=== PATIENT | female | born 1930 | race African-American/Black ===

== ENCOUNTER 2016-10-27 09:27 | Emergency (ER) | payer OTHER, MEDICAID ==
[~2016-10-27] VITALS: Ht 162.6 cm; Wt 86.2 kg
[2016-10-27] MEDS ORDERED: methylPREDNISolone SOD SUCC 125 MG/2 ML VL IV ONE (12:15)
[2016-10-27] MEDS ORDERED: diphenhdrAMINE HCL 50 MG/1 ML VL IV ONE (12:15)
[2016-10-27 12:58] LABS: Basophils # (auto) 0.1 uL; Basophils % (auto) 1.5 % (0.0-2.0); DEFINITIVE VIEW TRANSMISSION; Eosinophils # (auto) 1.4 uL; Eosinophils % (auto) 20.1 % (0.0-7.0); Hematocrit 40.3 % (36.0-46.0); Lymphocytes # (auto) 1.7 uL; Lymphocytes % (auto) 25.1 % (10.0-50.0); Mean Corpuscular Hemoglobin 27.4 pg (28.0-32.0); Mean Corpuscular Hgb Conc. 32.1 g/dL (32.0-36.0); Mean Corpuscular Volume 85.4 fL (80.0-100.0); Mean Platelet Volume 6.9 fL (7.4-10.4); Monocytes # (auto) 0.8 uL; Neutrophils # (auto) 2.8 uL; Neutrophils % (auto) 41.3 % (37.0-80.0); Platelet Count (auto) 284 10^3/uL (140-450); Red Cell Distribution Width 14.8 % (11.6-16.0); White Blood Cell 6.9 10^3/uL (4.4-10.8)
[2016-10-27 14:56] LABS: Albumin 3.6 g/dL (3.4-5.0); BUN/Creatinine Ratio 17.5; Bilirubin, Total 0.3 mg/dL (0.2-1.0); Calcium 9.1 mg/dL (8.5-10.1); Magnesium 2.4 mg/dL (1.6-2.6); Potassium 4.3 mmol/L (3.5-5.1); Total Protein 8.1 g/dL (6.4-8.2)
[2016-10-27 17:36] VITALS: BP 156/87
== END 2016-10-27 17:52 | disposition home or self-care (01) ==
LOC: EDUNIT# 09:27 → ER 09:32
DX: E11.9 Type 2 diabetes mellitus without complications (principal); I10 Essential (primary) hypertension; T75.89XA Other specified effects of external causes, initial encounter; X58.XXXA Exposure to other specified factors, initial encounter; Y93.89 Activity, other specified; Y99.8 Other external cause status; Y92.89 Other specified places as the place of occurrence of the external cause
CPT/HCPCS: 36415; 80053; 83735; 85025; 85049; 94761; 96374; 96375; 99284; J1200; J2930

== ENCOUNTER 2016-11-15 08:34 | Emergency (ER) | payer OTHER ==
[~2016-11-15] VITALS: Ht 160 cm; Wt 81.6 kg
[2016-11-15] MEDS ORDERED: MORPHINE SULF INJ 2 MG/ML SYRINGE 1ML IV ONE (09:30)
[2016-11-15] MEDS ORDERED: SODIUM CHLORIDE 0.9% 500 ML IVB ONE (09:30)
[2016-11-15] MEDS ORDERED: ONDANSETRON HCL 4 MG/2 ML VIAL IV ONE (09:30)
[2016-11-15 09:37] LABS: Urine Bilirubin Negative (Negative); Urine Color Yellow (Yellow); Urine Glucose Normal (Normal); Urine Ketone Negative (Negative); Urine Mucus FEW (None Seen); Urine Nitrite Negative (Negative); Urine RBC 9 /hpf (0 - 4); Urine Squamous Epithelial Cell MOD /hpf (<5); Urine Urobilinogen Normal (Negative); Urine WBC Clumps PRESENT /hpf (None Seen); Urine pH 5.5 (5.0-8.0)
[2016-11-15 09:41] LABS: Urine Blood 1+ /uL (Negative)
[2016-11-15 09:46] LABS: Basophils # (auto) 0 uL; DEFINITIVE VIEW TRANSMISSION; Eosinophils # (auto) 0.3 uL; Eosinophils % (auto) 4.9 % (0.0-7.0); Lymphocytes % (auto) 17.3 % (10.0-50.0); Mean Corpuscular Hemoglobin 27.2 pg (28.0-32.0); Mean Corpuscular Hgb Conc. 30.9 g/dL (32.0-36.0); Mean Corpuscular Volume 87.8 fL (80.0-100.0); Mean Platelet Volume 6.8 fL (7.4-10.4); Monocytes # (auto) 0.1 uL; Monocytes % (auto) 1.5 % (0.0-12.0); Neutrophils # (auto) 4.3 uL; Neutrophils % (auto) 76.3 % (37.0-80.0); Platelet Count (auto) 297 10^3/uL (140-450); White Blood Cell 5.7 10^3/uL (4.4-10.8)
[2016-11-15 10:10] LABS: Albumin 3.5 g/dL (3.4-5.0); BUN/Creatinine Ratio 20.5; Calcium 8.5 mg/dL (8.5-10.1); Magnesium 2.4 mg/dL (1.6-2.6); Potassium 3.9 mmol/L (3.5-5.1)
[2016-11-15 10:13] LABS: Bilirubin, Total 0.3 mg/dL (0.2-1.0); Total Protein 8.1 g/dL (6.4-8.2)
[2016-11-15] MEDS ORDERED: LEVOFLOXACIN 500MG 100 ML IV ONE (10:45)
[2016-11-15 11:14] VITALS: BP 115/60
== END 2016-11-15 14:32 | disposition home or self-care (01) ==
LOC: EDUNIT# 08:34 → ER 08:42 → EDUNIT# 08:42 → EDBD 08:42 → ER 14:32
DX: N39.0 Urinary tract infection, site not specified (principal); M79.1 Myalgia; E11.9 Type 2 diabetes mellitus without complications; I10 Essential (primary) hypertension
CPT/HCPCS: 36415; 74176; 80053; 81001; 83690; 83735; 85025; 94761; 96361; 96365; 96375; 99285; J1956; J2270; J2405; J7040

== ENCOUNTER 2017-07-26 09:39 | Emergency (ER) | payer OTHER, MEDICAID ==
[~2017-07-26] VITALS: Ht 157.5 cm; Wt 53.5 kg
[2017-07-26 11:06] VITALS: BP 146/96
== END 2017-07-26 11:31 | disposition home or self-care (01) ==
LOC: ER 09:39 → EDBD 09:39 → ER 11:31
DX: H10.13 Acute atopic conjunctivitis, bilateral (principal); E11.9 Type 2 diabetes mellitus without complications; I10 Essential (primary) hypertension

== ENCOUNTER 2018-07-23 11:35 | Inpatient (IN) | payer MEDICARE, MEDICAID ==
[~2018-07-23] VITALS: Ht 160 cm; Wt 91.4 kg
[2018-07-23 12:27] LABS: Basophils # (auto) 0 uL; Basophils % (auto) 0.6 % (0.0-2.0); Eosinophils # (auto) 0.6 uL; Eosinophils % (auto) 10.4 % (0.0-7.0); Hematocrit 44.9 % (36.0-46.0); Hemoglobin 14.2 g/dL (12.2-16.2); Lymphocytes # (auto) 1.8 uL; Lymphocytes % (auto) 30.9 % (10.0-50.0); Mean Corpuscular Hemoglobin 28.4 pg (28.0-32.0); Mean Corpuscular Hgb Conc. 31.7 g/dL (32.0-36.0); Mean Corpuscular Volume 89.6 fL (80.0-100.0); Monocytes # (auto) 0.6 uL; Monocytes % (auto) 10.2 % (0.0-12.0); Neutrophils # (auto) 2.7 uL; Neutrophils % (auto) 47.9 % (37.0-80.0); Platelet Count (auto) 173 10^3/uL (140-450); Red Blood Cells 5.01 10^6/uL (4.0-5.20); Red Cell Distribution Width 14.6 % (11.8-14.3); White Blood Cell 5.7 10^3/uL (4.4-10.8)
[2018-07-23 12:42] LABS: INR 0.98 (0.9-1.15); Partial Thromboplastin Time 25.8 sec (23.78-33.04); Prothrombin Time 10.5 sec (9.27-12.13)
[2018-07-23 12:44] LABS: Albumin 3.5 g/dL (3.4-5.0); Calcium 8.7 mg/dL (8.5-10.1); Magnesium 2.4 mg/dL (1.6-2.6)
[2018-07-23 12:47] LABS: BUN/Creatinine Ratio 19.2; Bilirubin, Total 0.3 mg/dL (0.2-1.0); Total Protein 8.4 g/dL (6.4-8.2)
[2018-07-23] MEDS ORDERED: ACETAMINOPHEN 500 MG TAB PO PRN (14:15)
[2018-07-23] MEDS ORDERED: HYDROcodone-ACET 5/325MG TAB PO PRN (14:15)
[2018-07-23] MEDS ORDERED: MORPHINE SULFATE 4 MG/ML SYR/VIAL IV PRN ×2 (14:15)
[2018-07-23] MEDS ORDERED: LORazepam 0.5 MG TAB PO PRN (14:15)
[2018-07-23] MEDS ORDERED: NITROGLYCERIN 0.4 MG SL TAB SL PRN (14:15)
[2018-07-23] MEDS ORDERED: TEMAZEPAM 15 MG CAP PO PRN (14:15)
[2018-07-23] MEDS ORDERED: DEXTROSE (50%) 50ML SYRG IV PRN (14:15)
[2018-07-23] MEDS ORDERED: ONDANSETRON HCL 4 MG/2 ML VIAL IV PRN (14:15)
[2018-07-23] MEDS ORDERED: ENOXAPARIN SOD 40 MG/0.4 ML SYRINGE SC ONE (14:30)
[2018-07-23] MEDS ORDERED: PANTOPRAZOLE 40 MG TAB PO ONE (14:30)
[2018-07-23] MEDS ORDERED: FUROSEMIDE 40 MG/4 ML VIAL IV ONE (14:30)
[2018-07-23] MEDS ORDERED: NITROGLYCERIN 0.2MG/HR TOPICAL PATCH TD ONE (14:30)
[2018-07-23] MEDS ORDERED: CARVEDILOL 3.125 MG TAB PO ONE (14:30)
[2018-07-23] MEDS ORDERED: ASPirin 81 mg TAB PO ONE (14:30)
[2018-07-23] MEDS ORDERED: POTASSIUM CHL 20 Meq TABLET PO ONE (14:30)
[2018-07-23] MEDS ORDERED: SODIUM CHLORIDE 0.9% 1,000 ML IV ONE (14:45)
[2018-07-23] MEDS ORDERED: ENOXAPARIN SOD 80 MG/0.8ML SYRINGE SC ONE (14:45)
[2018-07-23 15:39] LABS: Amylase 66 U/L (25-115); Lipase 174 U/L (73-393)
[2018-07-23] MEDS: InsuLIN REG 1unit/0.01ml Soln (100units/ml) SC SCH ×2 (18:01→21:32)
[2018-07-23] MEDS: ACCU-CHEK COMFORT CURVE STRIP VI SCH ×2 (18:01→21:32)
[2018-07-23] MEDS: CARVEDILOL 3.125 MG TAB PO SCH (21:22)
[2018-07-23] MEDS: ATORVASTATIN 20 MG TAB PO SCH (21:23)
[2018-07-23] MEDS: SODIUM CHLOR 0.9% PF (SALINE LOCK) 10ML VIAL/SYR IV SCH ×2 (21:27→21:36)
[2018-07-23 22:00] VITALS: BP 108/65
[2018-07-23] MEDS ORDERED: TRAM50TA2 PO (23:47)
[2018-07-23] MEDS ORDERED: ALL100T PO (23:47)
[2018-07-23] MEDS ORDERED: MELO1TAB56 PO (23:47)
[2018-07-23] MEDS ORDERED: HYDR12.524 PO (23:47)
[2018-07-23] MEDS ORDERED: DOCU100T15 PO (23:47)
[2018-07-23] MEDS ORDERED: BENA20TA14 PO (23:47)
[2018-07-23 23:58] VITALS: BP 108/65
[2018-07-24] VITALS (7 sets, daily range): BP systolic 100–122; BP diastolic 55–70
[2018-07-24] MEDS: SODIUM CHLOR 0.9% PF (SALINE LOCK) 10ML VIAL/SYR IV SCH ×6 (06:00→22:09)
[2018-07-24] MEDS: ACCU-CHEK COMFORT CURVE STRIP VI SCH ×4 (06:53→22:04)
[2018-07-24] MEDS: InsuLIN REG 1unit/0.01ml Soln (100units/ml) SC SCH ×4 (06:54→22:00)
[2018-07-24 07:32] LABS: Potassium 4.4 mmol/L (3.5-5.1)
[2018-07-24 07:41] LABS: Albumin 3.1 g/dL (3.4-5.0); BUN/Creatinine Ratio 18.7; Bilirubin, Total 0.4 mg/dL (0.2-1.0); Calcium 8.7 mg/dL (8.5-10.1); Total Protein 7.2 g/dL (6.4-8.2)
[2018-07-24] MEDS: ENOXAPARIN SOD 30 MG/0.3 ML SYRINGE SC SCH (09:37)
[2018-07-24] MEDS: FUROSEMIDE 40 MG/4 ML VIAL IV SCH (09:37)
[2018-07-24] MEDS: CARVEDILOL 3.125 MG TAB PO SCH ×2 (09:38→22:04)
[2018-07-24] MEDS: PANTOPRAZOLE 40 MG TAB PO SCH (09:38)
[2018-07-24] MEDS: NITROGLYCERIN 0.2MG/HR TOPICAL PATCH TD SCH (09:39)
[2018-07-24] MEDS: ASPirin 81 mg TAB PO SCH (09:39)
[2018-07-24] MEDS ORDERED: ENOXAPARIN SOD 30 MG/0.3 ML SYRINGE SC SCH (10:00)
[2018-07-24] MEDS ORDERED: ASPirin 81 mg TAB PO ONE (10:00)
[2018-07-24] MEDS ORDERED: POTASSIUM CHL 20 Meq TABLET PO SCH (10:00)
[2018-07-24] MEDS ORDERED: ENOXAPARIN SOD 40 MG/0.4 ML SYRINGE SC SCH (10:00)
[2018-07-24] MEDS ORDERED: ATORVASTATIN 20 MG TAB PO ONE (10:00)
[2018-07-24] MEDS: ATORVASTATIN 20 MG TAB PO SCH (21:41)
[2018-07-25] MEDS: SODIUM CHLOR 0.9% PF (SALINE LOCK) 10ML VIAL/SYR IV SCH ×6 (06:00→22:00)
[2018-07-25 06:01] VITALS: BP 112/51
[2018-07-25 06:53] LABS: Basophils # (auto) 0.3 uL; Basophils % (auto) 4.6 % (0.0-2.0); Eosinophils % (auto) 13.6 % (0.0-7.0); Hematocrit 37.8 % (36.0-46.0); Hemoglobin 12.3 g/dL (12.2-16.2); Lymphocytes # (auto) 0.8 uL; Lymphocytes % (auto) 10.8 % (10.0-50.0); Mean Corpuscular Hemoglobin 28.3 pg (28.0-32.0); Mean Corpuscular Hgb Conc. 32.5 g/dL (32.0-36.0); Monocytes # (auto) 0.4 uL; Monocytes % (auto) 5.6 % (0.0-12.0); Neutrophils # (auto) 4.6 uL; Neutrophils % (auto) 65.4 % (37.0-80.0); Platelet Count (auto) 190 10^3/uL (140-450); Red Blood Cells 4.35 10^6/uL (4.0-5.20); Red Cell Distribution Width 13.7 % (11.8-14.3)
[2018-07-25] MEDS: InsuLIN REG 1unit/0.01ml Soln (100units/ml) SC SCH ×4 (07:00→22:00)
[2018-07-25 07:12] LABS: BUN/Creatinine Ratio 19.5; Calcium 8.3 mg/dL (8.5-10.1); Magnesium 2.2 mg/dL (1.6-2.6); Potassium 4.7 mmol/L (3.5-5.1)
[2018-07-25] MEDS: ACCU-CHEK COMFORT CURVE STRIP VI SCH ×4 (07:18→22:03)
[2018-07-25 08:30] VITALS: BP 91/54
[2018-07-25 09:00] VITALS: BP 91/54
[2018-07-25] MEDS: ASPirin 81 mg TAB PO SCH (09:36)
[2018-07-25] MEDS: PANTOPRAZOLE 40 MG TAB PO SCH (09:36)
[2018-07-25] MEDS: ENOXAPARIN SOD 30 MG/0.3 ML SYRINGE SC SCH (09:37)
[2018-07-25] MEDS: POTASSIUM CHL 20 Meq TABLET PO SCH (09:37)
[2018-07-25] MEDS: NITROGLYCERIN 0.2MG/HR TOPICAL PATCH TD SCH (09:38)
[2018-07-25] MEDS: CARVEDILOL 3.125 MG TAB PO SCH ×2 (09:39→22:02)
[2018-07-25] MEDS: FUROSEMIDE 40 MG/4 ML VIAL IV SCH (10:00)
[2018-07-25 20:00] VITALS: BP 112/72
[2018-07-25 22:00] VITALS: BP 112/72
[2018-07-25] MEDS: ATORVASTATIN 20 MG TAB PO SCH (22:03)
[2018-07-26 05:00] VITALS: BP 120/64
[2018-07-26] MEDS: SODIUM CHLOR 0.9% PF (SALINE LOCK) 10ML VIAL/SYR IV SCH ×3 (05:54→17:22)
[2018-07-26 06:36] LABS: BUN/Creatinine Ratio 21.6; Calcium 8.3 mg/dL (8.5-10.1); Potassium 4.9 mmol/L (3.5-5.1)
[2018-07-26] MEDS: ACCU-CHEK COMFORT CURVE STRIP VI SCH (06:52)
[2018-07-26] MEDS: InsuLIN REG 1unit/0.01ml Soln (100units/ml) SC SCH (06:53)
[2018-07-26 08:13] VITALS: BP 92/62
[2018-07-26 08:15] VITALS: BP 92/62
[2018-07-26] MEDS ORDERED: FUROSEMIDE 40 MG TAB PO SCH (10:00)
[2018-07-26] MEDS: ASPirin 81 mg TAB PO SCH (10:02)
[2018-07-26] MEDS: PANTOPRAZOLE 40 MG TAB PO SCH (10:02)
[2018-07-26] MEDS: POTASSIUM CHL 20 Meq TABLET PO SCH (10:05)
[2018-07-26] MEDS: ENOXAPARIN SOD 30 MG/0.3 ML SYRINGE SC SCH (10:05)
[2018-07-26] MEDS: CARVEDILOL 3.125 MG TAB PO SCH (10:07)
[2018-07-26 12:13] VITALS: BP 117/66
[2018-07-26] MEDS ORDERED: HYDROcodone-ACET 5/325MG TAB PO PRN (13:30)
[2018-07-26] MEDS ORDERED: ASPI81CH43 PO (15:09)
[2018-07-26] MEDS ORDERED: CAR3125T PO (15:16)
[2018-07-26] MEDS ORDERED: PANT40T PO (15:16)
[2018-07-26] MEDS ORDERED: ATOR20TA50 PO (15:16)
[2018-07-26] MEDS ORDERED: CLOP75TA28 PO (15:16)
[2018-07-26] MEDS ORDERED: RANO500T PO (15:16)
[2018-07-26] MEDS ORDERED: CLOPIDOGREL BISULFATE 75 MG TAB PO ONE (15:30)
[2018-07-26 16:52] VITALS: BP 117/67
[2018-07-26 17:25] VITALS: BP 117/67
[2018-07-26] MEDS ORDERED: RANOLAZINE ER 500 MG TAB PO SCH (22:00)
[2018-07-27] MEDS ORDERED: CLOPIDOGREL BISULFATE 75 MG TAB PO SCH (10:00)
== END 2018-07-26 20:20 | DRG 280 ==
LOC: ER 11:35 → EDBD 11:35 → TELE 11:36 → TELE-WESTW 21:54
PROVIDERS: ADMIT Internal Medicine; ATTEND Internal Medicine
DX: I21.4 Non-ST elevation (NSTEMI) myocardial infarction (principal); I50.43 Acute on chronic combined systolic (congestive) and diastolic (congestive) heart failure; I13.0 Hypertensive heart and chronic kidney disease with heart failure and stage 1 through stage 4 chronic kidney disease, or unspecified chronic kidney disease; N18.4 Chronic kidney disease, stage 4 (severe); E66.9 Obesity, unspecified; F03.90 Unspecified dementia, unspecified severity, without behavioral disturbance, psychotic disturbance, mood disturbance, and anxiety; E11.22 Type 2 diabetes mellitus with diabetic chronic kidney disease; I25.10 Atherosclerotic heart disease of native coronary artery without angina pectoris; E11.21 Type 2 diabetes mellitus with diabetic nephropathy; R10.811 Right upper quadrant abdominal tenderness; E78.5 Hyperlipidemia, unspecified; Z87.891 Personal history of nicotine dependence; Z68.35 Body mass index [BMI] 35.0-35.9, adult
CPT/HCPCS: 36415; 51702; 71045; 76705; 76775; 80048; 80053; 80061; 82150; 82550; 82962; 83036; 83690; 83735; 83880; 84443; 84484; 85025; 85610; 85730; 87081; 93005; 93306; 96372; 97110; 97116; 97530

== ENCOUNTER 2018-11-26 11:40 | Emergency (ER) | payer MEDICARE, MEDICAID ==
[~2018-11-26] VITALS: Ht 160 cm; Wt 63.5 kg
[~2018-11-26 11:40] MED LIST: ALL100T PO; ASPI81CH43 PO; ATOR20TA50 PO; CAR3125T PO; CLOP75TA28 PO; DOCU100T15 PO; PANT40T PO; RANO500T PO; TRAM50TA2 PO
[2018-11-26 15:37] LABS: Basophils # (auto) 0 uL; Basophils % (auto) 0.8 % (0.0-2.0); Eosinophils # (auto) 0.6 uL; Eosinophils % (auto) 12.9 % (0.0-7.0); Hematocrit 40.1 % (36.0-46.0); Hemoglobin 12.8 g/dL (12.2-16.2); Lymphocytes # (auto) 1.3 uL; Lymphocytes % (auto) 27.9 % (10.0-50.0); Mean Corpuscular Hemoglobin 28.4 pg (28.0-32.0); Mean Corpuscular Volume 88.8 fL (80.0-100.0); Monocytes # (auto) 0.5 uL; Monocytes % (auto) 9.9 % (0.0-12.0); Neutrophils # (auto) 2.2 uL; Neutrophils % (auto) 48.5 % (37.0-80.0); Nucleated Red Blood Cells % 0.2 %; Platelet Count (auto) 262 10^3/uL (140-450); Red Blood Cells 4.52 10^6/uL (4.0-5.20); Red Cell Distribution Width 16.3 % (11.8-14.3); White Blood Cell 4.6 10^3/uL (4.4-10.8)
[2018-11-26 15:55] LABS: Potassium 3.8 mmol/L (3.5-5.1)
[2018-11-26 16:03] LABS: Albumin 3.5 g/dL (3.4-5.0); BUN/Creatinine Ratio 11.4; Bilirubin, Total 0.4 mg/dL (0.2-1.0); Calcium 8.6 mg/dL (8.5-10.1); Total Protein 7.8 g/dL (6.4-8.2)
[2018-11-26] MEDS ORDERED: ONDANSETRON ODT 4 MG TAB PO ONE (17:45)
[2018-11-26 22:03] VITALS: BP 132/86
== END 2018-11-26 22:37 | disposition home or self-care (01) ==
LOC: ER 11:40 → EDBD 11:40 → ER 20:44
DX: K52.9 Noninfective gastroenteritis and colitis, unspecified (principal); E11.9 Type 2 diabetes mellitus without complications; I10 Essential (primary) hypertension
CPT/HCPCS: 36415; 71045; 74176; 80053; 82150; 83690; 84484; 85025; 99284; Q0162

== ENCOUNTER 2019-08-24 10:41 | Emergency (ER) | payer MEDICARE, MEDICAID ==
[~2019-08-24] VITALS: Ht 160 cm; Wt 79.4 kg
[2019-08-24 11:37] LABS: Basophils # (auto) 0 uL; Basophils % (auto) 0.2 % (0.0-2.0); Eosinophils # (auto) 0.5 uL; Eosinophils % (auto) 7.6 % (0.0-7.0); Hematocrit 33.5 % (36.0-46.0); Hemoglobin 10.7 g/dL (12.2-16.2); Lymphocytes # (auto) 1.3 uL; Lymphocytes % (auto) 21.2 % (10.0-50.0); Mean Corpuscular Hemoglobin 31.1 pg (28.0-32.0); Mean Corpuscular Hgb Conc. 31.8 g/dL (32.0-36.0); Mean Corpuscular Volume 97.8 fL (80.0-100.0); Monocytes # (auto) 0.7 uL; Monocytes % (auto) 12.1 % (0.0-12.0); Neutrophils # (auto) 3.5 uL; Neutrophils % (auto) 58.9 % (37.0-80.0); Nucleated Red Blood Cells % 0.1 %; Platelet Count (auto) 270 10^3/uL (140-450); Red Blood Cells 3.43 10^6/uL (4.0-5.20); Red Cell Distribution Width 16.5 % (11.8-14.3); White Blood Cell 5.9 10^3/uL (4.4-10.8)
[2019-08-24 12:00] LABS: Albumin 3.1 g/dL (3.4-5.0); Calcium 8.8 mg/dL (8.5-10.1); Potassium 4.4 mmol/L (3.5-5.1)
[2019-08-24 12:06] LABS: Bilirubin, Total 0.3 mg/dL (0.2-1.0); Total Protein 7.2 g/dL (6.4-8.2)
[2019-08-24 12:44] LABS: Urine Bacteria FEW /hpf (None Seen); Urine Blood Negative /uL (Negative); Urine Hyaline Cast FEW /lpf (0 - 2); Urine Specific Gravity 1.019 (1.001-1.035); Urine WBC 22 /hpf (0 - 5)
[2019-08-24 13:01] VITALS: BP 144/67
[2019-08-24] MEDS ORDERED: cefTRIAXone 1GM/50ML D5W 50 ML IV ONE (13:15)
[2019-08-24] MEDS ORDERED: DEXTROSE (50%) 50ML SYRG IV ONE (13:15)
[2019-08-24] MEDS ORDERED: cefTRIAXone SOD 1,000 MG VL IM ONE (14:00)
[2019-08-24] MEDS ORDERED: LIDOCAINE 2% (LOCAL ANESTH.) PF 5ml SDV IJ ONE (14:00)
== END 2019-08-24 14:28 | disposition home or self-care (01) ==
LOC: EDBD 10:41 → EDUNIT# 10:41 → ER 10:41
DX: N39.0 Urinary tract infection, site not specified (principal); E11.649 Type 2 diabetes mellitus with hypoglycemia without coma; D64.9 Anemia, unspecified; I11.0 Hypertensive heart disease with heart failure; I50.9 Heart failure, unspecified; Z79.82 Long term (current) use of aspirin
CPT/HCPCS: 36415; 80053; 81001; 82150; 82962; 83690; 85025; 93005; 96372; 99284; J0696; J2001; J7042

== ENCOUNTER 2020-04-26 16:17 | Emergency (ER) | payer MEDICARE, MEDICAID ==
[~2020-04-26] VITALS: Ht 157.5 cm; Wt 61.2 kg
[2020-04-26] MEDS ORDERED: SODIUM CHLORIDE 0.9% 1,000 ML IV ONE (16:52)
[2020-04-26] MEDS ORDERED: SODIUM CHLORIDE 0.9% 500 ML IV ONE (16:52)
[2020-04-26 17:15] LABS: Basophils # (auto) 0 10 ^3/uL (0-0.2); Basophils % (auto) 0.5 % (0.0-2.0); Eosinophils # (auto) 0.5 10 ^3/uL (0-0.8); Eosinophils % (auto) 11.9 % (0.0-7.0); Hematocrit 37.2 % (36.0-46.0); Hemoglobin 12.5 g/dL (12.2-16.2); Lymphocytes # (auto) 1.4 10 ^3/uL (0.4-5.4); Lymphocytes % (auto) 32.1 % (10.0-50.0); Mean Corpuscular Hemoglobin 31.1 pg (28.0-32.0); Mean Corpuscular Hgb Conc. 33.5 g/dL (32.0-36.0); Mean Corpuscular Volume 92.9 fL (80.0-100.0); Monocytes # (auto) 0.6 10 ^3/uL (0-1.3); Monocytes % (auto) 14.4 % (0.0-12.0); Neutrophils # (auto) 1.8 10 ^3/uL (1.6-8.6); Neutrophils % (auto) 41.1 % (37.0-80.0); Nucleated Red Blood Cells % 0.1 %; Platelet Count (auto) 300 10^3/uL (140-450); Red Cell Distribution Width 16.4 % (11.8-14.3); White Blood Cell 4.3 10^3/uL (4.4-10.8)
[2020-04-26 17:33] LABS: Anion Gap 6 (5-15); Blood Urea Nitrogen 24 mg/dL (7-18); Calcium 8.9 mg/dL (8.5-10.1); Carbon Dioxide 27 mmol/L (21-32); Chloride 106 mmol/L (98-107); Glucose 93 mg/dL (74-106); Magnesium 1.8 mg/dL (1.6-2.6); Potassium 4.1 mmol/L (3.5-5.1); Sodium 139 mmol/L (136-145)
[2020-04-26 17:38] LABS: Alanine Aminotransferase 15 U/L (13-56); Alkaline Phosphatase 97 U/L (45-117); Aspartate Aminotransferase 18 U/L (15-37); Bilirubin, Total 0.4 mg/dL (0.2-1.0); GFR African American 33 mL/min; GFR Non-African American 27 mL/min; Total Protein 7.6 g/dL (6.4-8.2)
[2020-04-26 20:45] LABS: Urine Bacteria MANY /hpf (None Seen); Urine Blood Negative /uL (Negative); Urine Specific Gravity 1.009 (1.001-1.035); Urine WBC 2 /hpf (0 - 5)
[2020-04-27 09:11] VITALS: BP 149/93
== END 2020-04-27 14:09 | disposition home or self-care (01) ==
LOC: ER 16:17 → EDBD 16:17 → ER 04-27 14:09
DX: R06.02 Shortness of breath (principal); E46 Unspecified protein-calorie malnutrition; I13.0 Hypertensive heart and chronic kidney disease with heart failure and stage 1 through stage 4 chronic kidney disease, or unspecified chronic kidney disease; E11.22 Type 2 diabetes mellitus with diabetic chronic kidney disease; N18.3 Chronic kidney disease, stage 3 (moderate); I50.9 Heart failure, unspecified; K21.9 Gastro-esophageal reflux disease without esophagitis; E78.5 Hyperlipidemia, unspecified; Z20.828 Contact with and (suspected) exposure to other viral communicable diseases
CPT/HCPCS: 36415; 71045; 80053; 81001; 83735; 84484; 85025; 87070; 87804; 87880; 93005; 99285; C9803; U0003